=== PATIENT | male | born 1965 | race Caucasian/White ===

== ENCOUNTER 2023-09-16 10:58 | Emergency (ER) | payer OTHER ==
[~2023-09-16] VITALS: Ht 175.3 cm; Wt 113.4 kg
[2023-09-16 11:22] VITALS: BP 133/97
[2023-09-16] MEDS ORDERED: BUPR75 (11:25)
[2023-09-16] MEDS ORDERED: SERT25 (11:25)
[2023-09-16] MEDS ORDERED: LISI5 (11:25)
[2023-09-16] MEDS ORDERED: OMEP20ER (11:25)
[2023-09-16] MEDS ORDERED: ZOCOR20 MG (11:25)
[2023-09-16] MEDS ORDERED: Doxycycline Hyclate 100 MG TAB PO ONE (11:25)
[2023-09-16] MEDS ORDERED: Monodox100 MG PO (11:28)
== END 2023-09-16 11:54 | disposition home or self-care (01) ==
LOC: ER 10:58
DX: L08.9 Local infection of the skin and subcutaneous tissue, unspecified (principal); Z88.2 Allergy status to sulfonamides; Z79.899 Other long term (current) drug therapy
CPT/HCPCS: 99283; A9270